=== PATIENT | male | born 1995 | race Caucasian/White ===

== ENCOUNTER 2018-08-18 16:38 | Emergency (ER) | payer OTHER ==
[2018-08-18 17:13] VITALS: RESP 18
[2018-08-18] MEDS ORDERED: DiphenhydrAMINE 50 mg/ml Inj ONE (17:41)
--- NOTE | 2018-08-18 17:48 | ED PDOC ---
HPI: Psych/Substance Abuse Time Seen by Provider: 08/18/18 16:44 Chief Complaint (Nursing): Psychiatric Evaluation Chief Complaint (Provider): Psychiatric Evaluation History Per: Patient, EMS History/Exam Limitations: no limitations Severity: Moderate Associated Symptoms: Suicidal Thoughts Additional Complaint(s): 22 year old male with a past medical history of jaundice and meckel's diverticulum is brought into the ED by EMS for a psychiatric evaluation. As per EMS, patient's girlfriend found the patient in the bathroom with a towel around his neck. Patient states that he got into a fight with his girlfriend and acted on impulse, but now regrets it. Patient reports that he has had suicidal ideations in the past, but has never acted on them. Patient reports seeing a psychiatrist, and normally taking Klonopin, but has not taken it in 2x weeks because he depleted his supply. Patient denies having suicidal ideations, homicidal ideations, and hallucinations currently. PMD: None provided Past Medical History Reviewed: Historical Data, Nursing Documentation, Vital Signs Vital Signs: Last Vital Signs Temp 98.1 F 08/18/18 17:10 Pulse 84 08/18/18 17:10 Resp 18 08/18/18 17:10 BP 129/70 08/18/18 17:10 Pulse Ox 99 08/18/18 17:10 AMANDA report viewed?: Yes - Medical History PMH: Anxiety, Depression Other PMH: jaundice, meckel's diverticulum - Family History Family History: States: No Known Family Hx - Social History Current smoker - smoking cessation education provided: No Alcohol: None Drugs: Denies - Home Medications Home Medications: Ambulatory Orders Medication Instructions Recorded RX: No Known Home Med 08/18/18 - Allergies Allergies/Adverse Reactions: Allergies Allergy/AdvReac Type Severity Reaction Status Date / Time No Known Allergies Allergy Verified 08/18/18 16:43 Review of Systems ROS Statement: Except As Marked, All Systems Reviewed And Found Negative Psych: Negative for: Suicidal ideation ((-) homicidal ideation, (-) hallucinations) Physical Exam - Reviewed Nursing Documentation Reviewed: Yes Vital Signs Reviewed: Yes - Physical Exam Appears: Positive for: Well, Non-toxic, No Acute Distress Head Exam: Positive for: ATRAUMATIC, NORMOCEPHALIC Skin: Positive for: Normal Color, Warm, Dry. Negative for: Jaundice Neck: Positive for: Normal ((-) ligature barrera) Cardiovascular/Chest: Positive for: Regular Rate, Rhythm Respiratory: Positive for: Normal Breath Sounds Gastrointestinal/Abdominal: Positive for: Normal Exam, Soft. Negative for: Tenderness Neurologic/Psych: Positive for: Alert, Oriented (3x) - Laboratory Results Result Diagrams: 08/18/18 17:59 08/18/18 17:59 - ECG ECG: Positive for: Interpreted By Me, Viewed By Me ECG Rhythm: Positive for: Sinus Rhythm. Negative for: ST/T Changes Rate: 90 O2 Sat by Pulse Oximetry: 99 (RA) Pulse Ox Interpretation: Normal Medical Decision Making Medical Decision Makin:44 Initial impression: 22 year old male in the ED for a psychiatric evaluation. Initial plan: -- 1:1 -- crisis evaluation -- alcohol serum -- CMP -- drug screen -- CBC w/ diff -- urinalysis -- reevaluation Patient evaluated by Surekha (offal worker), who spoke with Dr. Reilly requesting the patient be admitted. 18:29 Bilirubin level is 3.2, patient denies having abdominal pain. Ultrasound of abdomen ordered. 19:34 US abdomen read and reviewed by radiologist FINDINGS: LIVER: Within normal limits in size and echogenicity. No mass. GALLBLADDER: The gallbladder appears within normal limits. No gallbladder wall thickening or pericholecystic fluid. COMMON BILE DUCT: Within normal limits in size. 3 mm. PANCREAS: The visualized pancreas appears within normal limits. The distal pancreas is obscured by bowel gas. RIGHT KIDNEY: Unremarkable. 10.7 cm. Normal renal contours. No renal mass or calculus. No hyd ronephrosis. IMPRESSION: Unremarkable right upper quadrant ultrasound. 20:31 Although patient signed consent to stay in psychiatric floor, he now does not want to. Patient reevaluated by Surekha who discussed patient's change of mind with . is requesting that the patient be screened by [facility]. EKG ordered 20:41 EKG read and reviewed by me. Sinus rhythm at 90 beats per minute. No ST/T wave changes. Patient is medically cleared for [facility]. 2200 Pt. c/o headache. Motrin PO ordered. 2250 Pt. was evaluated by [facility] and cleared for discharge. Pt. will be discharged under family's care. Scribe Attestation: Documented by Evangelina Livingston, acting as a scribe for Aubrey Harris Provider Scribe Attestation: All medical record entries made by the Scribe were at my direction and personally dictated by me. I have reviewed the chart and agree that the record accurately reflects my personal performance of the history, physical exam, medical decision making, and the department course for this patient. I have also personally directed, reviewed, and agree with the discharge instructions and disposition. Disposition - Clinical Impression Clinical Impression: Depression - Patient ED Disposition Is Patient to be Admitted: No - Disposition Disposition: Routine/Home Disposition Time: 22:56 Condition: STABLE
[2018-08-18 18:05] LABS: BASO % 0.5 % (0.0-2.0); EOS # 0.1 K/uL (0.0-0.7); EOS % 1.1 % (0.0-4.0); LYMPH # 1.3 K/uL (1.0-4.3); LYMPH % 19.9 % (20.0-40.0); MEAN CORPUSCULAR HEMOGLOBIN 30.7 pg (27.0-31.0); MEAN CORPUSCULAR HGB CONC 34.5 g/dL (33.0-37.0); MONO # 0.3 K/uL (0.0-0.8); MONO % 4.9 % (0.0-10.0); NEUT # 4.7 K/uL (1.8-7.0); NEUT % 73.6 % (50.0-75.0); NRBC % 0.1 % (0.0-0.0); RBC 5.21 Mil/uL (4.40-5.90); RED CELL DISTRIBUTION WIDTH 13.6 % (11.5-14.5); WHITE BLOOD COUNT 6.4 K/uL (4.8-10.8)
[2018-08-18 18:23] LABS: ALB/GLOB RATIO 1.4 (1.0-2.1); ALBUMIN 4.7 g/dL (3.5-5.0); ALT/SGPT 61 U/L (21-72); AST/SGOT 39 U/L (17-59); BLOOD UREA NITROGEN 17 mg/dl (9-20); CALCIUM 9.1 mg/dL (8.4-10.2); GFR NON-AFRICAN AMERICAN > 60
[2018-08-18 19:57] LABS: SQUAMOUS EPITHIAL < 1 /hpf (0-5); URINE BILIRUBIN NEGATIVE (NEGATIVE); URINE BLOOD NEGATIVE (NEGATIVE); URINE CLARITY CLEAR (Clear); URINE COLOR YELLOW (YELLOW); URINE GLUCOSE (UA) NEG (NEGATIVE); URINE LEUKOCYTE ESTERASE NEG Leu/uL (Negative); URINE PROTEIN NEGATIVE (NEGATIVE)
[2018-08-18 20:07] LABS: BARBITURATES, UR NEGATIVE (NEGATIVE); BENZODIAZEPINES, UR NEGATIVE (NEGATIVE); OPIATES, UR NEGATIVE (NEGATIVE); PHENCYCLIDINE, UR NEGATIVE (NEGATIVE)
[2018-08-18 21:08] VITALS: TEMP 97.5
[2018-08-18 23:03] VITALS: BP 144/95
[2018-08-18 23:53] VITALS: PULSE 90; O2SAT 99
--- NOTE | 2018-08-19 15:17 | US ---
Date of service: 08/18/2018 HISTORY: RUQ; elevated bilirubin COMPARISON: None. TECHNIQUE: Sonographic evaluation of the right upper quadrant of the abdomen. FINDINGS: LIVER: Measures 15.0 cm in length. Normal echogenicity of the liver parenchyma. No mass. No intrahepatic bile duct dilatation. GALLBLADDER: Unremarkable. No gallstones. COMMON BILE DUCT: Measures 3 mm. No stones. No dilatation. PANCREAS: Unremarkable as visualized. No mass. No ductal dilatation. RIGHT KIDNEY: Measures 10.7 cm in length. Normal echogenicity. No calculus, mass, or hydronephrosis. AORTA: No aneurysmal dilatation. IVC: Unremarkable. OTHER FINDINGS: None . IMPRESSION: Unremarkable abdominal ultrasound examination. No evidence of biliary obstruction. No evidence of cholelithiasis. The preliminary findings for this examination were reported by [facility] at 7:34 p.m. on 08/18/2018. There is concurrence of this report with the preliminary findings.
--- NOTE | 2018-08-19 20:07 | CARD ---
APPROVED REPORT Date of service: 08/18/2018 EKG Measurement Heart [id number] <Conclusion> Normal sinus rhythm Possible Left atrial enlargement Left axis deviation Incomplete right bundle branch block Abnormal ECG
== END 2018-08-18 23:05 | disposition home or self-care (01) ==
LOC: H.ER 16:38 → UNDOADMIN 20:17 → H.ERHOLD 20:17 → UNDODISIN 23:05
DX: F32.9 Major depressive disorder, single episode, unspecified (principal); Z00.8 Encounter for other general examination